=== PATIENT | female | born 1950 | race Caucasian/White ===

== ENCOUNTER 2016-07-30 10:06 | Observation (INO) | payer OTHER ==
--- NOTE | 2016-07-30 10:52 | CPEKG ---
Heart Rate: 61 RR Interval: 984 P-R Interval: 124 QRSD Interval: 92 QT Interval: 460 QTC Interval: 464 P [place]: 64 QRS [place]: 51 T Wave [place]: 55 EKG Severity - OTHERWISE NORMAL ECG - EKG Impression: SINUS RHYTHM EKG Impression: LOW VOLTAGE IN FRONTAL LEADS Electronically Signed By: Feliz Selby 30-Jul-2016 10:58:35
--- NOTE | 2016-07-30 11:31 | EDPHY ---
H & P Stated Complaint: "feels strange/foggy" hx depression off meds since december Time Seen by Provider: 07/30/16 11:16 HPI/ROS: CHIEF COMPLAINT: Dizziness feeling foggy feeling strange HISTORY OF PRESENT ILLNESS: This is a 66-year-old female presenting to the emergency department reports feeling" fuzzy and foggy" onset 8 o'clock this morning. Patient states she was feeling fine last night and earlier this morning, she was sitting at the breakfast table around 8 o'clock this morning when she had this" fogginess and fuzziness feeling" patient states she felt weak with nausea dizziness patient she laid on the floor for few minutes to see if that would help her feel better. Symptoms resolved a little bit she got up and walked to the bathroom, patient states just not quite feeling her normal self still feeling " foggy and and fuzzy" denies any chest pain shortness of breath, no falls 1345: Patient had left without discharge paperwork or talking with the nurse. Sitting outside on the curb positive syncope hitting the back of her head. Patient now complaining of nausea vomiting not feeling well generalized weakness. REVIEW OF SYSTEMS: Constitutional: No fever, no chills. Fatigue Eyes: No discharge. No blurred vision ENT: No sore throat. Cardiovascular: No chest pain, no palpitations. Respiratory: No cough, no shortness of breath. Gastrointestinal: No abdominal pain, no vomiting. Nausea Genitourinary: No dysuria Musculoskeletal: No back pain. Skin: No rashes. Neurological: No headache. Positive dizziness Source: Patient - Personal History Current Tetanus/Diphtheria Vaccine: Unsure - Medical/Surgical History Hx Asthma: No Hx Chronic Respiratory Disease: No Hx Diabetes: No Hx Cardiac Disease: No Hx Renal Disease: No Hx Cirrhosis: No Hx Alcoholism: No Hx HIV/AIDS: No Hx Splenectomy or Spleen Trauma: No Other PMH: depression/anxiety - Social History Smoking Status: Current every day smoker - Physical Exam Exam: General Appearance: Alert, no distress. Eyes: PERRLA no pallor or injection. ENT, Mouth: Mucous membranes moist. TMs normal bilaterally Respiratory: There are no retractions, lungs are clear to auscultation. Cardiovascular: Regular rate and rhythm. Gastrointestinal: Abdomen is soft and nontender, no masses, bowel sounds normal. Neurological: No focal deficits. All cranial nerves intact, ambulatory without gait disturbance Skin: Warm and dry, no rashes. Musculoskeletal: Neck is supple nontender. Extremities: symmetrical, full range of motion. Psychiatric: Patient is oriented X 3, there is no agitation. Constitutional: Initial Vital Signs Temperature (C) 36.4 C 07/30/16 10:15 Heart Rate 72 07/30/16 10:15 Respiratory Rate 18 07/30/16 10:15 Blood Pressure 141/86 H 07/30/16 10:15 O2 Sat (%) 98 07/30/16 10:15 O2 Delivery Mode Room Air Allergies/Adverse Reactions: Penicillins Allergy (Verified 07/30/16 10:15) Home Medications: Medication Instructions Recorded NK [No Known Home Meds] 07/30/16 Medical Decision Making - Diagnostics Imaging Results: Imaging Impressions Head CT 07/30/16 13:51 Impression: Head CT within normal limits. Results called and discussed with Estrella Fuentes NP, at 07/30/2016 14:27 General information for patients regarding this examination can be found at [email or web address]. If you have questions or comments about this report, please contact me at (hospital) or [phone] (cell). ED Course/Re-evaluation: Discussed the plan of care: EKG, CBC, CMP, UA, troponin 1254: Discussed results with patient, I determined CT head patient is declining this time. 1300: Went to evaluate patient to see how she was doing, the per nurse she thinks patient left without any instructions. 1335: Patient was outside sitting on the curb waiting for daughter to pick her up syncope outside, falling and hitting the back of her head. Patient now complaining of nausea, IV fluids Zofran CT head ordered 1400: Patient re-evaluation--->NAD, no vision changes nausea has resolved patient states feeling "somewhat better but I still feels out of sorts" 1429: Spoke with Dr. Torrez CT head negative for any acute findings 1435: Spoke with Dr. Carrion patient admitted. Differential Diagnosis: Other differential diagnosis considered but not limited to electrolyte imbalance , CVA, and [place] - Data Points Laboratory Results: Laboratory Results 07/30/16 10:55 07/30/16 10:55 07/30/16 07/30/16 07/30/16 11:46 10:55 10:55 WBC RBC Hgb Hct MCV MCH MCHC RDW Plt Count Seg Neutrophils % Cancelled Band Neutrophils % Cancelled Lymphocytes % Cancelled Monocytes % Cancelled Eosinophils % Cancelled Basophils % Cancelled Metamyelocytes % Cancelled Myelocytes % Cancelled Promyelocytes % Cancelled Blast Cells % Cancelled Megakaryocytes % Cancelled Absolute Seg Neuts Cancelled Absolute Band Neuts Cancelled Absolute Lymphocytes Cancelled Absolute Monocytes Cancelled Absolute Eosinophils Cancelled Absolute Basophils Cancelled Absolute Metamyelocyte Cancelled Absolute Myelocytes Cancelled Absolute Promyelocytes Cancelled Absolute Plasma Cells Cancelled Nucleated RBCs Cancelled Differential Comment Cancelled RBC/WBC/PLT Morphology Cancelled Hypersegmented Neuts Cancelled Atypical Lymphocytes Cancelled Absolute Blast Cells Cancelled Plasma Cells % Cancelled Smudge Cells Cancelled Toxic Granulation Cancelled Toxic Vacuolation Cancelled Dohle Bodies Cancelled Angelita Rods Cancelled Platelet Estimate Cancelled Clumped Platelets Cancelled Large Platelets Cancelled Giant Platelets Cancelled Bizarre Platelets Cancelled Polychromasia Cancelled Hypochromasia Cancelled Basophilic Stippling Cancelled Microcytic Cells Cancelled Spherocytes Cancelled Pappenheimer Bodies Cancelled Sickle Cells Cancelled Target Cells Cancelled Tear Drop Cells Cancelled Oval Macrocytes Cancelled Stomatocytes Cancelled [place] Bodies Cancelled Echinocytes Cancelled Elliptocytes Cancelled Acanthocytes (Spur) Cancelled Rouleaux Cancelled Keratocytes Cancelled Schistocytes Cancelled Sodium 134 mEq/L mEq/L (134-144) Potassium 4.1 mEq/L mEq/L (3.5-5.2) Chloride 101 mEq/L mEq/L (97-110) Carbon Dioxide 26 mEq/l mEq/l (22-31) Anion Gap 7 mEq/L L mEq/L (8-16) BUN 15 mg/dL mg/dL (7-23) Creatinine 0.8 mg/dL mg/dL (0.6-1.0) Estimated GFR > 60 Glucose 101 mg/dL H mg/dL (70-100) Calcium 9.3 mg/dL mg/dL (8.5-10.4) Total Bilirubin 0.7 mg/dL mg/dL (0.1-1.4) AST 43 IU/L IU/L (14-46) ALT 53 IU/L H IU/L (9-52) Alkaline Phosphatase 79 IU/L IU/L (38-126) Troponin I < 0.012 ng/mL ng/mL (0-0.034) Total Protein 7.0 g/dL g/dL (6.3-8.2) Albumin 4.0 g/dL g/dL (3.5-5.0) Urine Color PALE YELLOW Urine Appearance CLEAR Urine pH 7.0 (5.0-7.5) Ur Specific [place] 1.004 (1.002-1.030) Urine Protein NEGATIVE (NEGATIVE) Urine Ketones NEGATIVE (NEGATIVE) Urine Blood NEGATIVE (NEGATIVE) Urine Nitrate NEGATIVE (NEGATIVE) Urine Bilirubin NEGATIVE (NEGATIVE) Urine Urobilinogen NEGATIVE EU EU (0.2-1.0) Ur Leukocyte Esterase NEGATIVE (NEGATIVE) Urine Glucose NEGATIVE (NEGATIVE) Cold Agglutinins Cancelled 07/30/16 10:55 WBC 6.70 10^3/uL 10^3/uL (3.80-9.50) RBC 4.21 10^6/uL 10^6/uL (4.18-5.33) Hgb 13.6 g/dL g/dL (12.6-16.3) Hct 40.1 % % (38.0-47.0) MCV 95.2 fL fL (81.5-99.8) MCH 32.3 pg pg (27.9-34.1) MCHC 33.9 g/dL g/dL (32.4-36.7) RDW 12.7 % % (11.5-15.2) Plt Count 271 10^3/uL 10^3/uL (150-400) Seg Neutrophils % 68 % % Band Neutrophils % 1 % % Lymphocytes % 22 % % Monocytes % 7 % % Eosinophils % 1 % % Basophils % 1 % % Metamyelocytes % Myelocytes % Promyelocytes % Blast Cells % Megakaryocytes % Absolute Seg Neuts 4.56 10^/uL 10^/uL (1.70-6.50) Absolute Band Neuts 0.07 10^3/uL 10^3/uL (0.00-0.70) Absolute Lymphocytes 1.47 10^3/uL 10^3/uL (1.00-3.00) Absolute Monocytes 0.47 10^3/uL 10^3/uL (0.30-0.80) Absolute Eosinophils 0.07 10^3/uL 10^3/uL (0.03-0.40) Absolute Basophils 0.07 10^3/uL 10^3/uL (0.02-0.10) Absolute Metamyelocyte Absolute Myelocytes Absolute Promyelocytes Absolute Plasma Cells Nucleated RBCs Differential Comment RBC/WBC/PLT Morphology NORMAL (NORMAL) Hypersegmented Neuts Atypical Lymphocytes Absolute Blast Cells Plasma Cells % Smudge Cells Toxic Granulation Toxic Vacuolation Dohle Bodies Angelita Rods Platelet Estimate ADEQUATE (ADEQ) Clumped Platelets Large Platelets Giant Platelets Bizarre Platelets Polychromasia Hypochromasia Basophilic Stippling Microcytic Cells Spherocytes Pappenheimer Bodies Sickle Cells Target Cells Tear Drop Cells Oval Macrocytes Stomatocytes [place] Bodies Echinocytes Elliptocytes Acanthocytes (Spur) Rouleaux Keratocytes Schistocytes Sodium Potassium Chloride Carbon Dioxide Anion Gap BUN Creatinine Estimated GFR Glucose Calcium Total Bilirubin AST ALT Alkaline Phosphatase Troponin I Total Protein Albumin Urine Color Urine Appearance Urine pH Ur Specific [place] Urine Protein Urine Ketones Urine Blood Urine Nitrate Urine Bilirubin Urine Urobilinogen Ur Leukocyte Esterase Urine Glucose Cold Agglutinins Departure - Departure Disposition: [facility] Acute Clinical Impression: Generalized weakness Syncope Qualifiers: Syncope type: unspecified Qualified Code(s): R55 - Syncope and collapse Condition: Good
[2016-07-30 11:34] LABS: HEMATOCRIT 40.1 % (38.0-47.0); HEMOGLOBIN 13.6 g/dL (12.6-16.3); LIPEMIA HEMOLYSIS FLAG 90 (0-99); MEAN CELL HEMOGLOBIN 32.3 pg (27.9-34.1); MEAN CELL HEMOGLOBIN CONCENTR. 33.9 g/dL (32.4-36.7); MEAN CELL VOLUME 95.2 fL (81.5-99.8); PLATELET CLUMPS FLAG 0 (0-99); PLATELET COUNT 271 10^3/uL (150-400); RED BLOOD CELL COUNT 4.21 10^6/uL (4.18-5.33); RED CELL DISTRIBUTION WIDTH 12.7 % (11.5-15.2)
[2016-07-30 11:49] LABS: ALANINE AMINOTRANSFERASE 53 IU/L (9-52); ALKALINE PHOSPHATASE 79 IU/L (38-126); ANION GAP 7 mEq/L (8-16); ASPARTATE AMINOTRANSFERASE 43 IU/L (14-46); BILIRUBIN,TOTAL 0.7 mg/dL (0.1-1.4); CALCIUM 9.3 mg/dL (8.5-10.4); CARBON DIOXIDE 26 mEq/l (22-31); CHLORIDE 101 mEq/L (97-110); CREATININE 0.8 mg/dL (0.6-1.0); GLOMERULAR FILTRATION RATE > 60; GLUCOSE 101 mg/dL (70-100); POTASSIUM 4.1 mEq/L (3.5-5.2); SODIUM 134 mEq/L (134-144)
[2016-07-30 11:58] LABS: COLOR PALE YELLOW; LEUKOCYTE ESTERASE,URINE NEGATIVE (NEGATIVE); NITRITE,URINE NEGATIVE (NEGATIVE)
[2016-07-30 12:00] LABS: TROPONIN I < 0.012 ng/mL (0-0.034)
[2016-07-30] MEDS ORDERED: ACETAMINOPHEN 325 MG TAB PO PRN (14:52)
[2016-07-30] MEDS ORDERED: ONDANSETRON 4 MG/2 ML VIAL IVP PRN (14:52)
[2016-07-30] MEDS ORDERED: ONDANSETRON DISINTEGRATING 4 MG TAB PO PRN (14:52)
[2016-07-30 15:09] LABS: PLATELET ESTIMATE ADEQUATE (ADEQ)
--- NOTE | 2016-07-30 15:28 | GHP ---
[f rep st] HISTORY AND PHYSICAL DATE OF ADMISSION: 07/30/2016 HISTORY OF PRESENT ILLNESS: The patient is a pleasant 66-year-old female with minimal past medical history who presents here to the emergency department generalized malaise today. She woke up, she f elt well. She had breakfast, she ate and drank okay. About 8 o'clock this morning, she had been up for a couple hours, she started feeling generalized wooziness, lightheadedness and malaise. She di d not have cough, shortness of breath, urgency, frequency, dysuria, abdominal pain, productive cough , myalgias. She has been eating and drinking well lately. She has had no nausea or vomiting this m orning. She sought care in the emergency department. She had some tests including essentially norm al labs, and left the hospital at which point, her daughter came to pick her up and she had a syncop al episode outside. Prior to her syncope she denies chest pain, shortness of breath or palpitations. She enjoys good ex ercise tolerance, raring to go for a walk today. She has noticed no decrement in her exercise jagruti ance. No anginal-type symptoms. No heart failure type symptoms. She does smoke 4 cigarettes per day. She has 1 glass of wine per day. These recently have not solorio ged. No unexplained weight loss. Not clear if she had age-appropriate cancer screening. REVIEW OF SYSTEMS: Complete 10-point review of systems conducted, negative except as noted in the H PI. PAST MEDICAL HISTORY: None. ALLERGIES: Penicillin. HOME MEDICATIONS: None. SOCIAL HISTORY: Lives in [facility]. Four cigarettes per day. One glass of wine daily. FAMILY HISTORY: No sudden cardiac . PHYSICAL EXAM: VITAL SIGNS: Temp 36.4, blood pressure 141/86, pulse 72, breathing 18 times a minut e, 98% on room air. GENERAL: No acute distress. HEENT: Sclerae anicteric. Oropharynx clear. Mu cous membranes moist. NECK: Supple without lymphadenopathy or JVD. LUNGS: Clear to auscultation bilaterally. HEART: S1, S2 without murmurs. ABDOMEN: Soft, nontender, nondistended without rebou nd or guarding. LOWER EXTREMITIES: No edema. Calves nontender. SKIN: Without rash. NEUROLOGIC: Grossly nonfocal. LABORATORY DATA: White count 6.7, hematocrit 40, platelets are 271,000. Sodium 134, potassium 4.1, chloride 101, bicarb 26, BUN 15, creatinine 0.8, glucose 101. LFTs normal with the exception of a mildly elevated ALT at 53. Troponin less than 0.012. UA is negative. EKG, interpreted by me shows sinus at 61 with normal axis and intervals. No ST or T-wave changes. No prior for comparison. No ncontrast head CT performed after syncope shows: No acute events with normal noncontrast head CT. I have discussed the case with Gaudencio Fuentes of the emergency department. ASSESSMENT/PLAN: This is a 66-year-old female with malaise and syncope. 1. Syncope. Unclear what is causing this. I do not suspect pulmonary embolism given the fact she is neither hypoxic nor tachycardic and not on a jessica agent. May be vasovagal versus orthostasis. I will check orthostatic vital signs. Follow her on telemetry. Repeat 1 troponin. I think echocar diogram does not need to be performed. 2. Malaise. Suspect viral syndrome. We will check influenza. It is not clear if she had a flu sh ot this year. 3. Prophylaxis. She is moderate risk by risk factor profile, suspect she will be in the hospital o vernight. Provide her with SCDs. 4. Elevated ALT. Difficult to note the make of this. Follow. DISPOSITION: Observation status, telemetry. /[id number]/MODL
[2016-07-30] MEDS ORDERED: ACETAMINOPHEN 325 MG TAB ONE (16:07)
[2016-07-31 06:49] LABS: ANION GAP 5 mEq/L (8-16); CALCIUM 9.5 mg/dL (8.5-10.4); CARBON DIOXIDE 25 mEq/l (22-31); CHLORIDE 108 mEq/L (97-110); CREATININE 0.8 mg/dL (0.6-1.0); GLOMERULAR FILTRATION RATE > 60; GLUCOSE 90 mg/dL (70-100); POTASSIUM 4.4 mEq/L (3.5-5.2); SODIUM 138 mEq/L (134-144)
[2016-07-31 07:39] VITALS: TEMP 98.1
--- NOTE | 2016-07-31 11:46 | GDS ---
[f rep st] DISCHARGE SUMMARY FINAL DIAGNOSES: 1. Syncope. 2. Malaise. HOSPITAL COURSE: A 66-year-old female who presents to the ED with malaise. She was discharged home from there, however, she had a syncopal episode. She had no chest pain, shortness of breath or pal pitations during this episode. She did hit her head. Her head CT was negative. She has no audible murmurs on exam. She has never had an episode of syncope before. Telemetry was reviewed and showe d occasional PVCs, though no malignant arrhythmias. I think likely this is vasovagal. I have facil itated having an event monitor mailed to her, and she will have Cardiology follow up to review this. She will return to the hospital if she has another episode of syncope. She is comfortable with th is plan. /[id number]/MODL
[2016-07-31 12:15] VITALS: BP 129/72; PULSE 70; RESP 14; O2SAT 92
== END 2016-07-31 13:30 | disposition home or self-care (01) ==
LOC: F3E 18:00
PROVIDERS: ADMIT Internal Medicine; ATTEND Student in an Organized Health Care Education/Training Program
DX: R55 Syncope and collapse (principal); R53.81 Other malaise; F17.200 Nicotine dependence, unspecified, uncomplicated
CPT/HCPCS: 70450; 92523; 93005; 99285; G0378; G9168; G9169; G9170

== ENCOUNTER → 2018-07-02 | Outpatient (CLI) | payer OTHER | LOC: BMCIMAGING 08:55 | PROVIDERS: ATTEND Internal Medicine | DX: Z13.820 Encounter for screening for osteoporosis (principal); Z78.0 Asymptomatic menopausal state; M85.89 Other specified disorders of bone density and structure, multiple sites; R09.89 Other specified symptoms and signs involving the circulatory and respiratory systems ==

== ENCOUNTER → 2018-07-02 | Outpatient (CLI) | payer OTHER | LOC: BMCIMAGING 08:52 ==